=== PATIENT | male | born 1930 | race Caucasian/White ===

== ENCOUNTER 2018-07-11 15:31 | Emergency (ER) | payer MEDICARE ==
[~2018-07-11] VITALS: Ht 167.6 cm; Wt 81.6 kg
[2018-07-11] MEDS ORDERED: LIDOCAINE 1% INJ 20 ML 20 ML VIAL INJ ONE (16:00)
[2018-07-11] MEDS ORDERED: TETANUS,DIPTH,PERTUSS P/F (BOOSTRIX) 0.5 ML VIAL IM ONE (16:00)
[2018-07-11] MEDS ORDERED: fentaNYL INJECTION 100 MCG/2 ML AMP IVP ONE ×2 (16:00→19:45)
[2018-07-11 16:08] LABS: BASOPHILS % (AUTO) 0 % (0-10); EOSINOPHILS # (AUTO) 0.2 10^3/uL (0.0-0.3); EOSINOPHILS % (AUTO) 2 % (0-10); HEMATOCRIT 42 % (40-54); HEMOGLOBIN 13.7 G/DL (13.3-17.7); LYMPHOCYTES # (AUTO) 2.9 X 10^3 (1.0-4.0); LYMPHOCYTES % (AUTO) 35 % (12-44); MEAN CORPUSCULAR HEMOGLOBIN 30 PG (25-34); MEAN CORPUSCULAR HGB CONC 33 G/DL (32-36); MEAN CORPUSCULAR VOLUME 93 FL (80-99); MEAN PLATELET VOLUME 9.7 FL (7.4-10.4); MONOCYTES # (AUTO) 0.8 X 10^3 (0.0-1.0); MONOCYTES % (AUTO) 10 % (0-12); NEUTROPHILS # (AUTO) 4.4 X 10^3 (1.8-7.8); NEUTROPHILS % (AUTO) 53 % (42-75); PLATELET COUNT 197 10^3/uL (130-400); RED CELL DISTRIBUTION WIDTH 14.9 % (10.0-14.5); WHITE BLOOD COUNT 8.3 10^3/uL (4.3-11.0)
[2018-07-11 16:18] LABS: PROTHROMBIN TIME PATIENT 13.6 SEC (12.2-14.7)
[2018-07-11 16:27] LABS: ALBUMIN 3.9 GM/DL (3.2-4.5); BILIRUBIN,TOTAL 0.7 MG/DL (0.1-1.0); CALCIUM 9.2 MG/DL (8.5-10.1); CREATININE SERUM 1.66 MG/DL (0.60-1.30); MAGNESIUM 2.3 MG/DL (1.8-2.4); POTASSIUM 4.4 MMOL/L (3.6-5.0); TOTAL PROTEIN 7.3 GM/DL (6.4-8.2)
[2018-07-11] MEDS ORDERED: NS IV 1000 ML 1,000 ML IV ONE (16:37)
--- NOTE | 2018-07-11 16:41 | Diagnostic Imaging Report ---
INDICATION: Recent falls. EXAMINATION: PA chest at 4:17 p.m. COMPARISON: There are no prior studies available for comparison. FINDINGS: Heart size is within normal limits. There are sternotomy wires, surgical clips and a valvular prosthesis evident. There is also a left-sided defibrillator device in place. The lungs, where visualized, are clear. Left upper lung is partially obscured by the battery pack for the defibrillator device. There is no evidence for failure, pneumonia or for a pleural effusion. There is no pneumothorax identified either. The mediastinum is not widened. There are healed displaced rib fractures on the left. IMPRESSION: There is evidence of prior cardiac surgery and previous trauma to the left thorax. There is no acute abnormality identified, however. Dictated by: Dictated on workstation # [id number]
--- NOTE | 2018-07-11 16:42 | Diagnostic Imaging Report ---
INDICATION: Fell. EXAMINATION: Pelvis at 4:22 p.m. A single AP view of the pelvis was obtained. COMPARISON: There are no prior studies available for comparison. FINDINGS: There is no fracture, dislocation or acute bony abnormality evident. 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 The soft tissues are unremarkable. IMPRESSION: There is no evidence for an acute bony abnormality. Dictated by: Dictated on workstation # [id number]
[2018-07-11 16:46] LABS: BILIRUBIN,URINE NEGATIVE (NEGATIVE); CLARITY,URINE CLEAR; COLOR,URINE YELLOW; GLUCOSE, URINE (UA) NEGATIVE (NEGATIVE); KETONES,URINE NEGATIVE (NEGATIVE); LEUKOCYTE ESTERASE ,URINE NEGATIVE (NEGATIVE); NITRITE,URINE NEGATIVE (NEGATIVE); PH,URINE 5 (5-9); PROTEIN,URINE NEGATIVE (NEGATIVE); UROBILINOGEN,URINE NORMAL (NORMAL)
--- NOTE | 2018-07-11 16:46 | Diagnostic Imaging Report ---
INDICATION: Fell. EXAMINATION: Right shoulder at 4:18 p.m. Three views were obtained. COMPARISON: There are no prior studies available for comparison. FINDINGS: There is no fracture, dislocation or acute bony abnormality evident. There is at least moderate degenerative disease of the shoulder joint. The soft tissues are unremarkable. IMPRESSION: There is no evidence for an acute bony abnormality. Dictated by: Dictated on workstation # [id number]
--- NOTE | 2018-07-11 16:48 | Diagnostic Imaging Report ---
INDICATION: Fell, elbow pain. EXAMINATION: Left elbow at 4:24 p.m. Three views were obtained. COMPARISON: There are no prior studies available for comparison. FINDINGS: The lateral view does show a fracture extending through the posterior superior aspect of the olecranon process. There is approximately 2.3 mm of diastasis between the fracture fragments. The age of this fracture is indeterminate and this could be long-standing in nature. There is no significant soft tissue edema in this area and the posterior fat-pad of the elbow joint is not elevated. Even so, the possibly that this is related to an acute or subacute fracture should still be considered. 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 Incidental note is made of a radiopaque IV tubing line in the antecubital fossa. IMPRESSION: There is a displaced fracture of the olecranon process. The age of this injury, however, is indeterminate. Clinical followup is recommended. Dictated by: Dictated on workstation # [id number]
--- NOTE | 2018-07-11 16:49 | Diagnostic Imaging Report ---
PROCEDURE: CT head, face, and cervical spine without contrast. TECHNIQUE: Multiple contiguous axial images were obtained through the head, neck, and facial bones without the use of intravenous contrast. Sagittal and coronal reformations through the cervical spine and facial bones were also performed. INDICATION: Trauma. Facial laceration. Bilateral neck pain. COMPARISON: None. FINDINGS: CT head and maxillofacial: Mildly comminuted displaced fracture of the midline nasal bones. 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 Small air-fluid level in the right maxillary sinus. No other fractures are identified. Advanced generalized cerebral and cerebellar parenchymal volume loss. No CT evidence for territorial infarction. No intracranial hemorrhage, mass effect hydrocephalus or extra-axial fluid collections. CT cervical spine: Normal alignment. Vertebral body heights are preserved. No fractures. Moderate degenerative endplate changes greatest at C5-C7. No evidence of high-grade spinal canal narrowing on this non-intrathecal contrast exam. Lung apices are clear. Mild atherosclerotic calcifications in the carotid bifurcations. IMPRESSION: 1. Mildly comminuted and impacted midline nasal bone fractures anteriorly. No other maxillofacial fractures. There is a small amount of fluid layering in the right maxillary sinus. 2. No acute intracranial or cervical spine CT findings. Dictated by: Dictated on workstation # [id number]
[2018-07-11 16:53] LABS: BACTERIA,URINE NEGATIVE /HPF
[2018-07-11] MEDS ORDERED: DOXYCYCLINE 100 MG (VIBRAMYCIN) TABLET PO ONE (17:15)
--- NOTE | 2018-07-11 17:15 | ED Fall/Injury ---
General Chief Complaint: Laceration Stated Complaint: FELL AND INJURED NOSE Nursing Triage Note: Pt to ED in wheelchair. Pt presents with laceration to nose. Pt reports tripping [employer] and hitting face on concrete. Pt also has abrasion to forehead and skin tear to L elbow. Pt reports multiple recent falls and c/o R hip and shoulder pain from a recent fall. Pt reports taking coumadin. Source: patient Exam Limitations: no limitations History of Present Illness Date Seen by Provider: Jul 11, 2018 Time Seen by Provider: 15:35 Initial Comments This 87-year-old gentleman presents to the emergency room accompanied by a female friend after having a fall injury. He tripped and hit his face on concrete resulting in a large laceration over the proximal aspect of his nose. He also complains of right shoulder pain and hip pain from prior falls. He has had multiple falls in the past few weeks. He denies loss of consciousness. He does have significant pain around the site of the injury. He takes warfarin for cardiac reasons. He has had a porcine valve replacement and numerous stents. Patient is ambulatory, alert and oriented at this time. Patient denies any lightheadedness, dizziness, or other prodrome. Allergies and Home Medications Allergies Coded Allergies: metformin (Verified Allergy, Unknown, 07/11/18) Home Medications Doxycycline Hyclate 100 Mg Tablet, 100 MG PO BID Prescribed by: JUANA CIFUENTES on 07/11/18 7869 Patient Home Medication List Home Medication List Reviewed: Yes Review of Systems Review of Systems Constitutional: no symptoms reported Eyes: No Symptoms Reported Ears, Nose, Mouth, Throat: see HPI Respiratory: no symptoms reported Cardiovascular: no symptoms reported Gastrointestinal: no symptoms reported Genitourinary: no symptoms reported Musculoskeletal: no symptoms reported Skin: no symptoms reported Psychiatric/Neurological: No Symptoms Reported Past Mfeaiui-Lbubfr-Mxmiee Hx Patient Social History Alcohol Use: Denies Use Recreational Drug Use: No 2nd Hand Smoke Exposure: No Recent Foreign Travel: No Contact w/Someone Who Travel: No Recent Infectious Disease Expo: No Recent Hopitalizations: No Physical Abuse: No Sexual Abuse: No Past Medical History Surgeries: Yes Cardiac, Coronary Stent, Renal Respiratory: No Cardiac: Yes Hypertension Neurological: No Genitourinary: Yes Renal Failure Gastrointestinal: No Musculoskeletal: No Endocrine: Yes HEENT: No Cancer: No Psychosocial: No Integumentary: No Blood Disorders: No Adverse Reaction/Blood Tranf: No Physical Exam Vital Signs Vital Signs - First Documented 07/11/18 15:36 Temp 97.9 Pulse 97 Resp 22 B/P (MAP) 152/73 (99) Pulse Ox 95 O2 Delivery Room Air Capillary Refill : Less Than 3 Seconds Height, Weight, BMI Height: 5'6.00" Weight: 180lbs. oz. 81.578909ro; BMI Method:Stated General Appearance: WD/WN, no apparent distress HEENT: PERRL/EOMI, TMs normal, pharynx normal, other (deep laceration approximately 2.5 cm across the proximal portion of the nose extending from proximal to distal and orientation. Blood is oozing from the wound.) Neck: non-tender, normal inspection Cardiovascular: regular rate, rhythm, no edema, no murmur Respiratory: lungs clear, normal breath sounds, no respiratory distress, no accessory muscle use Gastrointestinal: normal bowel sounds, non tender, soft Extremities: normal inspection, pelvis stable, other (pain and tenderness around the right shoulder. Skin tear over the left elbow. 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, no motor/sensory deficits, alert, normal mood/affect, oriented x 3 Skin: normal color, warm/dry [place] Coma Score Best Eye Response: (4) Open Spontaneously Best Verbal Response: (5) Oriented Best Motor Response: (6) Obeys Commands Nehemias Total: 15 Progress/Results/Core Measures Results/Orders Lab Results Laboratory Tests Test 07/11/18 16:00 07/11/18 16:39 Range/Units White Blood Count 8.3 4.3-11.0 10^3/uL Red Blood Count 4.53 4.35-5.85 10^6/uL Hemoglobin 13.7 13.3-17.7 G/DL Hematocrit 42 40-54 % Mean Corpuscular Volume 93 80-99 FL Mean Corpuscular Hemoglobin 30 25-34 PG Mean Corpuscular Hemoglobin Concent 33 32-36 G/DL Red Cell Distribution Width 14.9 H 10.0-14.5 % Platelet Count 197 130-400 10^3/uL Mean Platelet Volume 9.7 7.4-10.4 FL Neutrophils (%) (Auto) 53 42-75 % Lymphocytes (%) (Auto) 35 12-44 % Monocytes (%) (Auto) 10 0-12 % Eosinophils (%) (Auto) 2 0-10 % Basophils (%) (Auto) 0 0-10 % Neutrophils # (Auto) 4.4 1.8-7.8 X 10^3 Lymphocytes # (Auto) 2.9 1.0-4.0 X 10^3 Monocytes # (Auto) 0.8 0.0-1.0 X 10^3 Eosinophils # (Auto) 0.2 0.0-0.3 10^3/uL Basophils # (Auto) 0.0 0.0-0.1 10^3/uL Prothrombin Time 13.6 12.2-14.7 SEC INR Comment 1.0 0.8-1.4 Sodium Level 137 135-145 MMOL/L Potassium Level 4.4 3.6-5.0 MMOL/L Chloride Level 107 98-107 MMOL/L Carbon Dioxide Level 18 L 21-32 MMOL/L Anion Gap 12 5-14 MMOL/L Blood Urea Nitrogen 23 H 7-18 MG/DL Creatinine 1.66 H 0.60-1.30 MG/DL Estimat Glomerular Filtration Rate 40 BUN/Creatinine Ratio 14 Glucose Level 175 H 70-105 MG/DL Calcium Level 9.2 8.5-10.1 MG/DL Corrected Calcium 9.3 8.5-10.1 MG/DL Magnesium Level 2.3 1.8-2.4 MG/DL Total Bilirubin 0.7 0.1-1.0 MG/DL Aspartate Amino Transf (AST/SGOT) 23 5-34 U/L Alanine Aminotransferase (ALT/SGPT) 25 0-55 U/L Alkaline Phosphatase 53 40-136 U/L Total Protein 7.3 6.4-8.2 GM/DL Albumin 3.9 3.2-4.5 GM/DL Urine Color YELLOW Urine Clarity CLEAR Urine pH 5 5-9 Urine Specific [place] 1.015 L 1.016-1.022 Urine Protein NEGATIVE NEGATIVE Urine Glucose (UA) NEGATIVE NEGATIVE Urine Ketones NEGATIVE NEGATIVE Urine Nitrite NEGATIVE NEGATIVE Urine Bilirubin NEGATIVE NEGATIVE Urine Urobilinogen NORMAL NORMAL MG/DL Urine Leukocyte Esterase NEGATIVE NEGATIVE Urine RBC (Auto) NEGATIVE NEGATIVE Urine RBC NONE /HPF Urine WBC NONE /HPF Urine Squamous Epithelial Cells 2-5 /HPF Urine Crystals NONE /LPF Urine Bacteria NEGATIVE /HPF Urine Casts NONE /LPF Urine Mucus NEGATIVE /LPF Urine Culture Indicated NO My Orders Orders - JUANA MARINO MD Ct Head/Face/Cervical Wo (07/11/18 15:44) Chest 1 View, Ap/Pa Only (07/11/18 15:53) Shoulder, Right, 3 Views (07/11/18 15:53) Pelvis (07/11/18 15:53) Saline Lock/Iv-Start (07/11/18 15:53) Ekg Tracing (07/11/18 15:53) Monitor-Rhythm Ecg Trace Only (07/11/18 15:53) Cbc With Automated Diff (07/11/18 15:53) Comprehensive Metabolic Panel (07/11/18 15:53) Magnesium (07/11/18 15:53) Protime With Inr (07/11/18 15:53) Ua Culture If Indicated (07/11/18 15:53) Elbow, Left, 3 Views (07/11/18 15:53) Fentanyl Injection (Sublimaze Injection (07/11/18 16:00) Dipht,Pertuss(Acell),Tet Adult (Boostrix (07/11/18 16:00) Lidocaine 1% Inj 20 Ml (Xylocaine 1% Inj (07/11/18 16:00) Ns Iv 1000 Ml (Sodium Chloride 0.9%) (07/11/18 16:37) Doxycycline Hyclate Tablet (Vibramycin T (07/11/18 17:15) Medications Given in ED Current Medications Medications Dose Ordered Sig/Grazyna Route Start Time Stop Time Status Last Admin Dose Admin Diphtheria/ Tetanus/Acell Pertussis 0.5 ml ONCE ONCE IM 07/11/18 16:00 07/11/18 16:01 DC 07/11/18 17:16 0.5 ML Doxycycline Hyclate 100 mg ONCE ONCE PO 07/11/18 17:15 07/11/18 17:16 DC 07/11/18 17:18 100 MG Fentanyl Citrate 25 mcg ONCE ONCE IVP 07/11/18 16:00 07/11/18 16:01 DC 07/11/18 16:09 25 MCG Lidocaine HCl 20 ml ONCE ONCE INJ 07/11/18 16:00 07/11/18 16:01 DC 07/11/18 16:45 20 ML Sodium Chloride 1,000 ml @ 0 mls/hr Q0M ONCE IV 07/11/18 16:37 07/11/18 16:38 DC 07/11/18 17:14 1,000 MLS/HR Vital Signs/I&O 07/11/18 15:36 Temp 97.9 Pulse 97 Resp 22 B/P (MAP) 152/73 (99) Pulse Ox 95 O2 Delivery Room Air Blood Pressure Mean: 99 Progress Progress Note : Progress Note Patient was seen and examined. CT of the head, face and cervical spine was obtained. There was a small nasal fracture but no other serious injuries identified. Wound was anesthetized and cleaned. He was then approximated with suture. Tetanus booster was administered. He received 2 doses of fentanyl 25 g a take-home pack of hydrocodone for treatment of pain. The laceration extended to the nasal bone. This is technically an open fracture so antibiotics were felt necessary. A dose of doxycycline was given in the ER with a prescription to follow. Patient was very hesitant to receive antibiotics because of history of diarrhea with prior antibiotics. He is willing to do a short course of 3 days. Labs and EKG were reviewed to evaluate for frequent falls. No major abnormalities were identified. Chronic kidney disease seems to be about stable based on his stated report from prior labs. A liter of IV normal saline was administered to support his renal function. Initial ECG Impression Date: Jul 11, 2018 Initial ECG Impression Time: 16:33 Initial ECG Rate: 93 Comment Atrial sensed ventricular paced rhythm. No overt ischemia noted. Diagnostic Imaging Diagonstic Imaging: CT Plain Films/CT/US/NM/MRI: facial bones, c-spine, head Comments CT head, face, and C-spine viewed by me and report reviewed. See report below: NAME: [facility]AND[facility] REC#: [id number] PT STATUS: REG ER : 1930 PHYSICIAN: JUANA MARINO MD ADMIT DATE: 07/11/18/ER Draft Date of Exam:07/11/18 CT HEAD/FACE/CERVICAL WO PROCEDURE: CT head, face, and cervical spine without contrast. TECHNIQUE: Multiple contiguous axial images were obtained through the head, neck, and facial bones without the use of intravenous contrast. Sagittal and coronal reformations through the cervical spine and facial bones were also performed. INDICATION: Trauma. Facial laceration. Bilateral neck pain. COMPARISON: None. FINDINGS: CT head and maxillofacial: Mildly comminuted displaced fracture of the midline nasal bones. 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 Small air-fluid level in the right maxillary sinus. No other fractures are identified. Advanced generalized cerebral and cerebellar parenchymal volume loss. No CT evidence for territorial infarction. No intracranial hemorrhage, mass effect hydrocephalus or extra-axial fluid collections. CT cervical spine: Normal alignment. Vertebral body heights are preserved. No fractures. Moderate degenerative endplate changes greatest at C5-C7. No evidence of high-grade spinal canal narrowing on this non-intrathecal contrast exam. Lung apices are clear. Mild atherosclerotic calcifications in the carotid bifurcations. IMPRESSION: 1. Mildly comminuted and impacted midline nasal bone fractures anteriorly. No other maxillofacial fractures. There is a small amount of fluid layering in the right maxillary sinus. 2. No acute intracranial or cervical spine CT findings. Dictated on workstation # [id number] Dict: 07/11/18 1633 Trans: 07/11/181647 [facility] [id number] Interpreted by: SHEELA HUBER MD Diagonstic Imaging: Xray Plain Films/CT/US/NM/MRI: other (right shoulder) Comments Right shoulder x-ray viewed by me and report reviewed. See report below: NAME: [facility]OLANDO [facility] REC#: [id number] PT STATUS: REG ER : 1930 PHYSICIAN: JUANA MARINO MD ADMIT DATE: 07/11/18/ER Draft Date of Exam:07/11/18 SHOULDER, RIGHT, 3 VIEWS INDICATION: Fell. EXAMINATION: Right shoulder at 4:18 p.m. Three views were obtained. COMPARISON: There are no prior studies available for comparison. FINDINGS: There is no fracture, dislocation or acute bony abnormality evident. There is at least moderate degenerative disease of the shoulder joint. The soft tissues are unremarkable. IMPRESSION: There is no evidence for an acute bony abnormality. Dictated on workstation # [id number] Dict: 07/11/18 1634 Trans: 07/11/181645 [facility] [id number] Interpreted by: RAJESH OLIVO MD Diagonstic Imaging: Xray Plain Films/CT/US/NM/MRI: pelvis Comments Pelvis x-ray viewed by me and report reviewed. See report below: NAME: ROLANDO [facility] REC#: [id number] PT STATUS: REG ER : 1930 PHYSICIAN: JUANA MARINO MD ADMIT DATE: 07/11/18/ER Draft Date of Exam:07/11/18 PELVIS INDICATION: Fell. EXAMINATION: Pelvis at 4:22 p.m. A single AP view of the pelvis was obtained. COMPARISON: There are no prior studies available for comparison. FINDINGS: There is no fracture, dislocation or acute bony abnormality evident. 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 The soft tissues are unremarkable. IMPRESSION: There is no evidence for an acute bony abnormality. Dictated on workstation # [id number] Dict: 07/11/18 1633 Trans: 07/11/18 1642 [facility] [id number] Interpreted by: RAJESH OLIVO MD Diagonstic Imaging: Xray Plain Films/CT/US/NM/MRI: elbow Comments X-ray of the left elbow viewed by me and report reviewed. Patient has no tenderness directly over the acromion. This fracture is likely old. See report below: NAME: ROLANDO [facility] REC#: [id number] PT STATUS: [facility] : 1930 PHYSICIAN: JUANA MARINO MD ADMIT DATE: 07/11/18/ER Draft Date of Exam:07/11/18 ELBOW, LEFT, 3 VIEWS INDICATION: Fell, elbow pain. EXAMINATION: Left elbow at 4:24 p.m. Three views were obtained. COMPARISON: There are no prior studies available for comparison. FINDINGS: The lateral view does show a fracture extending through the posterior superior aspect of the olecranon process. There is approximately 2.3 mm of diastasis between the fracture fragments. The age of this fracture is indeterminate and this could be long-standing in nature. There is no significant soft tissue edema in this area and the posterior fat-pad of the elbow joint is not elevated. Even so, the possibly that this is related to an acute or subacute fracture should still be considered. 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 Incidental note is made of a radiopaque IV tubing line in the antecubital fossa. IMPRESSION: There is a displaced fracture of the olecranon process. The age of this injury, however, is indeterminate. Clinical followup is recommended. Dictated on workstation # [id number] Dict: 07/11/18 1635 Trans: 07/11/18 1648 [facility] [id number] Interpreted by: RAJESH OLIVO MD Diagonstic Imaging: Xray Plain Films/CT/US/NM/MRI: chest Comments Chest x-ray viewed by me and report reviewed. See report below: NAME: ROLANDO [facility] REC#: [id number] PT STATUS: REG ER : 1930 PHYSICIAN: JUANA MARINO MD ADMIT DATE: 07/11/18/ER Draft Date of Exam:07/11/18 CHEST 1 VIEW, AP/PA ONLY INDICATION: Recent falls. EXAMINATION: PA chest at 4:17 p.m. COMPARISON: There are no prior studies available for comparison. FINDINGS: Heart size is within normal limits. There are sternotomy wires, surgical clips and a valvular prosthesis evident. There is also a left-sided defibrillator device in place. The lungs, where visualized, are clear. Left upper lung is partially obscured by the battery pack for the defibrillator device. There is no evidence for failure, pneumonia or for a pleural effusion. There is no pneumothorax identified either. The mediastinum is not widened. There are healed displaced rib fractures on the left. IMPRESSION: There is evidence of prior cardiac surgery and previous trauma to the left thorax. There is no acute abnormality identified, however. Dictated on workstation # [id number] Dict: 07/11/18 1632 Trans: 07/11/18 1640 [facility] [id number] Interpreted by: RAJESH OLIVO MD Departure Impression Primary Impression: Laceration of face Qualified Codes: S01.81XA - Laceration without foreign body of other part of head, initial encounter Additional Impressions: Fall on same level Qualified Codes: W18.30XA - Fall on same level, unspecified, initial encounter Frequent falls Anticoagulated Right shoulder pain Qualified Codes: M25.511 - Pain in right shoulder Skin tear of left elbow without complication Qualified Codes: S51.012A - Laceration without foreign body of left elbow, initial encounter Chronic kidney disease Qualified Codes: N18.9 - Chronic kidney disease, unspecified Nasal fracture Qualified Codes: S02.2XXB - Fracture of nasal bones, initial encounter for open fracture Disposition: HOME, SELF-CARE Condition: Improved Departure-Patient Inst. Decision time for Depature: 17:10 Referrals: NO,LOCAL PHYSICIAN (PCP) Primary Care Physician Patient Instructions: Laceration Repair With Stitches (DC) Add. Discharge Instructions: Keep your wound clean and dry except for normal showering. You may allow soapy water to run over it but do not scrub directly over the sutures. Monitor for signs of infection such as increasing redness, increasing pain, puslike drainage , or fever. Return to care promptly if you notice these symptoms. Return in about 7 days to have your sutures removed. Complete your antibiotics as prescribed to prevent infection. Your INR today is only 1.0. You likely need your Coumadin dose adjusted. Please continue taking your Coumadin and contact your prescribing doctor on Friday for further instructions. Visit with your primary care doctor as soon as possible to discuss your frequent falls. Consider using a walker or cane to help you keep balance. Consider changing from cowboy boots to a firm tennis shoe to provide better support and balance. Drink plenty of clear liquids to stay well-hydrated. Return to care if you have worsening symptoms. All discharge instructions reviewed with patient and/or family. Voiced understanding. Scripts Doxycycline Hyclate (Doxycycline Hyclate) 100 Mg Tablet 100 MG PO BID, #6 TAB Prov: JUANA MARINO MD 07/11/18 JUANA MARINO MD Jul 11, 2018 17:15
[2018-07-11] MEDS ORDERED: DOXY100T2 PO (17:19)
[2018-07-11] MEDS ORDERED: RX-HYDROCODONE/APAP 5/325 MG #4 TAB PK PO PRN (18:15)
[2018-07-11] MEDS ORDERED: RX-HYDROCODONE/APAP 5/325 MG #4 TAB PK PO ONE (18:19)
[2018-07-11 18:32] VITALS: BP 149/64
== END 2018-07-11 18:32 | disposition home or self-care (01) ==
LOC: EDUNIT# 15:31 → ER 15:33
DX: S01.81XA Laceration without foreign body of other part of head, initial encounter (principal); S51.012A Laceration without foreign body of left elbow, initial encounter; S02.2XXA Fracture of nasal bones, initial encounter for closed fracture; I12.9 Hypertensive chronic kidney disease with stage 1 through stage 4 chronic kidney disease, or unspecified chronic kidney disease; N18.9 Chronic kidney disease, unspecified; R29.6 Repeated falls; M25.511 Pain in right shoulder; R40.2142 Coma scale, eyes open, spontaneous, at arrival to emergency department; R40.2252 Coma scale, best verbal response, oriented, at arrival to emergency department; R40.2362 Coma scale, best motor response, obeys commands, at arrival to emergency department; Z23 Encounter for immunization; Z95.5 Presence of coronary angioplasty implant and graft; Z95.2 Presence of prosthetic heart valve; Z88.8 Allergy status to other drugs, medicaments and biological substances; Z79.01 Long term (current) use of anticoagulants; W01.198A Fall on same level from slipping, tripping and stumbling with subsequent striking against other object, initial encounter
CPT/HCPCS: 36415; 70450; 70486; 71045; 72125; 72170; 73030; 73080; 80053; 81000; 83735; 85025; 85610; 90715; 93005; 93041